=== PATIENT | female | born 1985 | race Caucasian/White ===

== ENCOUNTER → 2018-06-29 16:30 | Outpatient (CLI) | payer OTHER, SELFPAY ==
[2018-07-03 11:07] LABS: HPV Reflexed? NOT INDICATED
== END ==
PROVIDERS: Visit Provider Obstetrics & Gynecology
DX: Z12.4 Encounter for screening for malignant neoplasm of cervix (principal)
CPT/HCPCS: 88175; G0145

== ENCOUNTER → 2019-04-01 16:38 | Outpatient (CLI) | payer OTHER, SELFPAY ==
[2019-04-01 18:35] LABS: Chlamydia Trachomatis by PCR Negative (Negative); Neisserai gonorrhoeae by PCR Negative (Negative); Probe Check PASS; Sample Adequacy Control PASS; Specimen Processing Control PASS
== END ==
PROVIDERS: Referring Provider Obstetrics & Gynecology; Visit Provider Obstetrics & Gynecology
DX: Z11.3 Encounter for screening for infections with a predominantly sexual mode of transmission (principal)
CPT/HCPCS: 87491; 87591

== ENCOUNTER → 2019-05-03 14:04 | Outpatient (CLI) | payer OTHER, SELFPAY ==
[2019-05-03 16:04] LABS: Color, Urine Yellow (Yellow); Glucose, Dipstick Normal (Normal); Ketone-Dipstick 5 mg/dl (Negative); Leukocyte Esterase-Dipstick 500 /ul (Negative); Nitrite-Dipstick Negative (Negative); Occult Blood-Urine 10 /ul (Negative); Protein-Dipstick Negative (Negative); Urine Bilirubin Dipstick Negative (Negative); Urine Clarity Sl. Cloudy (Clear); Urine Urobilinogen Normal (Normal); Urine pH 6.5 (5.0 - 8.0)
[2019-05-03 16:07] LABS: Absolute Lymphocyte Count 2.16 X10^3/uL (0.83-4.51); Absolute Neutrophil Count 7.7 X10^3/uL (2.0-7.7); Basophil# 0.02 X10^3/uL; Basophil% 0.2 % (0-1); Eosinophil# 0.05 X10^3/uL; Eosinophils% 0.5 % (0-5); Hematocrit 39.9 % (37-47); Hemoglobin 13.4 g/dL (12.0-15.0); Lymphocyte # 2.16 X10^3/ul (4.0); Lymphocyte % 20.8 % (19-41); Mean Corp Hgb Conc 33.6 g/dL (32-36); Mean Corpuscular Hgb 29.9 pg (27.0-32.0); Mean Corpuscular Volume 89.1 fL (81-99); Mean Platelet Vol. 10.7 fl (6.2-12.0); Monocyte# 0.42 X10^3/uL; NRBC Flagged by Analyzer 0 % (0-5); Neutrophil % 74.1 % (47-70); Platelet Count 260 K/mm3 (150-450); RBC Distribution Width SD 42.4 fl (35.1-43.9); Red Blood Count 4.48 M/mm3 (4.2-5.4); White Blood Count 10.4 K/mm3 (4.4-11.0)
[2019-05-03 16:25] LABS: Thyroid Stim Hormone (TSH) 0.97 uIU/mL (0.358-3.74)
[2019-05-04 10:00] LABS: HIV - WCH Non-Reactive (Nonreactive); Hepatitis B Surface Antigen Non-Reactive (Nonreactive); Hepatitis C Antibody Non-Reactive (Nonreactive); Rubella IgG 319.9 IU/mL
[2019-05-06 01:45] LABS: Prenatal RPR NONREACTIVE (NONREACTIVE)
== END ==
PROVIDERS: Visit Provider Obstetrics & Gynecology
DX: Z34.82 Encounter for supervision of other normal pregnancy, second trimester (principal); Z3A.00 Weeks of gestation of pregnancy not specified
CPT/HCPCS: 36415; 81002; 84443; 85025; 86703; 86762; 86803; 87340

== ENCOUNTER → 2019-08-02 13:38 | Outpatient (CLI) | payer OTHER, SELFPAY ==
[2016-06-22 04:28] VITALS: BMI 30.2
[2019-08-02 14:21] LABS: Hematocrit 38.1 % (37-47); Hemoglobin 12.5 g/dL (12.0-15.0); Mean Corp Hgb Conc 32.8 g/dL (32-36); Mean Corpuscular Hgb 30.3 pg (27.0-32.0); Mean Corpuscular Volume 92.3 fL (81-99); Mean Platelet Vol. 10.3 fl (6.2-12.0); Platelet Count 240 K/mm3 (150-450); RBC Distribution Width CV 13.2 % (11.6-14.6); RBC Distribution Width SD 44.4 fl (35.1-43.9); Red Blood Count 4.13 M/mm3 (4.2-5.4); White Blood Count 12.7 K/mm3 (4.4-11.0)
[2019-08-02 14:24] LABS: Glucose Challenge Gest 1H 50g 75 mg/dL (70-140)
== END ==
PROVIDERS: Visit Provider Obstetrics & Gynecology
DX: Z34.83 Encounter for supervision of other normal pregnancy, third trimester (principal)
CPT/HCPCS: 36415; 82950; 85027

== ENCOUNTER → 2019-09-20 | Outpatient (CLI) | payer OTHER, SELFPAY | END | disposition home or self-care (01) | LOC: LABSPEC 14:15 | PROVIDERS: Visit Provider Advanced Practice Midwife | DX: R30.0 Dysuria (principal) | CPT/HCPCS: 87086; 87088 ==

== ENCOUNTER → 2019-09-27 | Outpatient (CLI) | payer OTHER, SELFPAY | END | disposition home or self-care (01) | LOC: LABSPEC 14:04 | PROVIDERS: Visit Provider Obstetrics & Gynecology | DX: Z36.85 Encounter for antenatal screening for Streptococcus B (principal) | CPT/HCPCS: 87081 ==

== ENCOUNTER 2019-10-25 11:05 | Outpatient (CLI) | payer OTHER, SELFPAY ==
[2016-06-22 04:28] VITALS: BMI 30.2
[2019-10-25] VITALS (16 sets, daily range): BP systolic 107–160; BP diastolic 57–84; PULSE 52–74; TEMP 99.6; BMI 31.3
[2019-10-25 12:09] LABS: Hematocrit 34.6 % (37-47); Hemoglobin 11.2 g/dL (12.0-15.0); Mean Corp Hgb Conc 32.4 g/dL (32-36); Mean Corpuscular Hgb 28.5 pg (27.0-32.0); Mean Platelet Vol. 12.4 fl (6.2-12.0); Platelet Count 154 K/mm3 (150-450); RBC Distribution Width CV 13.2 % (11.6-14.6); RBC Distribution Width SD 41.6 fl (35.1-43.9); Red Blood Count 3.93 M/mm3 (4.2-5.4); White Blood Count 9.2 K/mm3 (4.4-11.0)
[2019-10-25 12:26] LABS: AST(SGOT) 30 U/L (15-37); Alanine Aminotransfer ALT/SGPT 23 U/L (13-56); Creatinine, Serum 0.76 mg/dL (0.55-1.02); EST Glomerular Filtration Rate 92 mL/min (>60); Est Glom Filt Rate - Afr Amer 111 mL/min (>60); Estimated Creatinine Clearance 97.64 ml/min; Partial Thromboplast Time 27.1 Seconds (24.1-36.2); Prothrombin Time (Protime)PT. 12.5 SECONDS (11.7-14.9); Uric Acid 4.8 mg/dL (2.6-6.0)
[2019-10-25 13:03] LABS: Protein:Creat Ratio 286 mg/g CRE (0-200)
--- NOTE | 2019-10-26 08:47 | OB.TRI.HP_ITS ---
- Problem List (1) 39 weeks gestation of Status: Acute (2) rule out pre-eclampsia Status: Acute History of Present Illness Date of Service: 10/25/19 Was patient seen by the physician?: Yes Reason For Visit: R/O PIH Date of Service: 10/25/19 Final MARK: 10/26/19 Final MARK Source: US <20 weeks Gestational age: 40 Weeks and 0 Days History of Present Illness: +3 bilateral lower extremity pitting edema in the office today. BP 128/90 with 2+ urine protein. Has had a mild headache not relieved with Tylenol, rest and hydration. Allergies No Known Allergies Allergy (Verified 06/22/16 04:27) Laboratory Studies: Laboratory Tests 10/25/19 10/25/19 10/25/19 Range/Units 12:25 11:45 11:45 WBC (4.4-11.0) K/mm3 RBC (4.2-5.4) M/mm3 Hgb (12.0-15.0) g/dL Hct (37-47) % MCV (81-99) fL MCH (27.0-32.0) pg MCHC (32-36) g/dL RDW Std Deviation (35.1-43.9) fl RDW Coeff of Amber (11.6-14.6) % Plt Count (150-450) K/mm3 MPV (6.2-12.0) fl PT 12.5 (11.7-14.9) SECONDS INR 1.0 APTT 27.1 (24.1-36.2) Seconds Creatinine 0.76 (0.55-1.02) mg/dL Estim Creat Clear Calc 97.64 ml/min Est GFR (MDRD) Af Amer 111 (>60) mL/min Est GFR (MDRD) Non-Af 92 (>60) mL/min Uric Acid 4.8 (2.6-6.0) mg/dL AST 30 (15-37) U/L ALT 23 (13-56) U/L U Random Total Protein 10.0 (<11.9) mg/dL Urine Creatinine 35.00 (NO RANGE EST.) mg/dL Protein/Creatinin Ratio 286 H (0-200) mg/g CRE 10/25/19 Range/Units 11:45 WBC 9.2 (4.4-11.0) K/mm3 RBC 3.93 L (4.2-5.4) M/mm3 Hgb 11.2 L (12.0-15.0) g/dL Hct 34.6 L (37-47) % MCV 88.0 (81-99) fL MCH 28.5 (27.0-32.0) pg MCHC 32.4 (32-36) g/dL RDW Std Deviation 41.6 (35.1-43.9) fl RDW Coeff of Amber 13.2 (11.6-14.6) % Plt Count 154 (150-450) K/mm3 MPV 12.4 H (6.2-12.0) fl PT (11.7-14.9) SECONDS INR APTT (24.1-36.2) Seconds Creatinine (0.55-1.02) mg/dL Estim Creat Clear Calc ml/min Est GFR (MDRD) Af Amer (>60) mL/min Est GFR (MDRD) Non-Af (>60) mL/min Uric Acid (2.6-6.0) mg/dL AST (15-37) U/L ALT (13-56) U/L U Random Total Protein (<11.9) mg/dL Urine Creatinine (NO RANGE EST.) mg/dL Protein/Creatinin Ratio (0-200) mg/g CRE Review of Systems Constitutional: Denies: Chills, Fever, Weight Change HEENT: Reports: Head Aches. Denies: Sinus Congestion, Sinus Drainage Cardiovascular: Denies: Chest Pain, Palpitations Respiratory: Denies: Cough, Shortness of breath at rest, Sputum production Gastrointestinal: Denies: Abdominal Pain, Nausea, Vomiting Genitourinary: Denies: Dysuria Musculoskeletal: Denies: Joint Pain, Joint Tenderness Skin: Denies: Rash, Wounds Neurological: Denies: Numbness, Tingling, Focal weakness Psychiatric: Denies: Anxiety, Depression, Homicidal Ideations, Suicidal Ideations Hematologic/ Lymphatic: Denies: Easy Bruising, Easy Bleeding Physical Exam General: Alert, Oriented x3, No apparent distress HEENT: Atraumatic, Normocephalic. 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 Negative for: Vulvar lesions Estimated gestational size: Appropriate for gestational size Presentation: Cephalic Cervix Dilation (cm): 1 Station: -3 Effacement (%): 50 NST - FHR Rate Baby A Baseline: 130 Variability:: Moderate Accelerations:: 15 x 15 Decelerations:: None NST Reactive:: Yes, Appropriate for gestational age FHR Category:: Category I Uterine Activity:: irritability Impression/Plan A: Sent to triage from office to rule out pre-eclampsia at 39 weeks gestation NST reactive, FHR baseline 130, +accels, -decels, moderate variability, Category I P: Pre-eclampsia labs ran Serial BPs NST All reviewed with Dr. Hinton. Okay to discharge and follow up in 2 days in the office. To call with any worsening s/s of pre-eclampsia
== END 2019-10-25 13:20 | disposition home or self-care (01) ==
LOC: WPOUT 11:12 → OBT 11:13
PROVIDERS: PCP Family Medicine; Referring Provider Obstetrics & Gynecology; Visit Provider Obstetrics & Gynecology
DX: O16.3 Unspecified maternal hypertension, third trimester (principal); Z3A.39 39 weeks gestation of pregnancy
CPT/HCPCS: 36415; 59025; 59050; 82565; 82570; 84156; 84450; 84460; 84550; 85027; 85610; 85730; 99218; G0378

== ENCOUNTER 2019-10-26 14:25 | Inpatient (IN) | payer OTHER, SELFPAY ==
[2016-06-22 04:28] VITALS: BMI 30.2
[2019-10-25 11:21] VITALS: BMI 31.3
[2019-10-26] VITALS (18 sets, daily range): BP systolic 123–155; BP diastolic 63–88; PULSE 55–112; TEMP 98.5; O2SAT 97; BMI 32.0
[2019-10-26] MEDS: Lactated Ringers 1,000 ML 50 ML IV (14:50)
[2019-10-26 15:16] LABS: Absolute Lymphocyte Count 1.71 X10^3/uL (0.83-4.51); Absolute Neutrophil Count 7.9 X10^3/uL (2.0-7.7); Basophil# 0.04 X10^3/uL; Basophil% 0.4 % (0-1); Eosinophil# 0.02 X10^3/uL; Eosinophils% 0.2 % (0-5); Hematocrit 34.6 % (37-47); Hemoglobin 11.4 g/dL (12.0-15.0); Lymphocyte # 1.71 X10^3/ul (4.0); Mean Corp Hgb Conc 32.9 g/dL (32-36); Mean Corpuscular Hgb 29.2 pg (27.0-32.0); Mean Corpuscular Volume 88.7 fL (81-99); Mean Platelet Vol. 12.1 fl (6.2-12.0); Monocyte# 0.36 X10^3/uL; Monocyte% 3.6 % (0-10); NRBC Flagged by Analyzer 0 % (0-5); Neutrophil # 7.87 X10^3/uL (2.7-7.7); Neutrophil % 78.1 % (47-70); Platelet Count 161 K/mm3 (150-450); RBC Distribution Width CV 13.2 % (11.6-14.6); RBC Distribution Width SD 42.5 fl (35.1-43.9); White Blood Count 10.1 K/mm3 (4.4-11.0)
[2019-10-26] MEDS: 0.9% Saline Lock 10 ML Syringe IV (15:49)
--- NOTE | 2019-10-26 17:35 | PCM.HP.OB ---
- Problem List (1) 40 weeks gestation of Status: Acute History Date of Admission: 10/26/19 Final MARK: 10/26/19 Final MARK Source: US <20 weeks Gestational age: 40 Weeks and 0 Days History of this : This is a 34 year-old, G [5], P [3], at 40 weeks gestational age. Sent for medical induction r/t gestational hypertension. Allergies No Known Allergies Allergy (Verified 10/26/19 14:53) Home Medications: Home Medications Vits [Prenatabs FA ] 1 tablet PO DAILY 10/31/13 Smoking Status: Never smoker Alcohol: None Number of Fetus(es): 1 NST - FHR Rate Baby A Baseline: 140 Variability:: Moderate Accelerations:: 15 x 15 Decelerations:: None NST Reactive:: Yes FHR Category:: Category I Uterine Activity:: 2-6 minutes by palpation History Past Pregnancies: PRIOR DELIVERY HISTORY DEL DATE GEST LAB WT LB WT OZ TYPE ANES LABOR TX 27 December 12 38 13 5 5 Vag None No 11 Mar 14 38 6 7 4 Vag None No 12 Vidal 15 8 0 0 0 Sab None No 30 Oct 16 40 10 7 15 Vag None No Labs: Mom's Labs & Results 10/26/19 10/26/19 14:50 14:50 WBC 10.1 RBC 3.90 L Hgb 11.4 L Hct 34.6 L MCV 88.7 MCH 29.2 MCHC 32.9 RDW Std Deviation 42.5 RDW Coeff of Amber 13.2 Plt Count 161 MPV 12.1 H Immature Gran % (Auto) 0.700 Neut % (Auto) 78.1 H Lymph % (Auto) 17.0 L Mcdowell % (Auto) 3.6 Eos % (Auto) 0.2 Baso % (Auto) 0.4 Absolute Neuts (auto) 7.9 H Absolute Lymphs (auto) 1.71 Nucleated RBC % 0 Blood Type O POSITIVE Antibody Screen NEGATIVE Course Did the patient receive Yes care? Labs Blood Type: O RH: POSITIVE RPR/VDRL/Syphilis Nonreactive Rubella status Immune HbSAg Negative Date Done: 05/03/19 Chlamydia Negative Gonorrhea Negative HIV/AIDS Non-Reactive Group B Strep: Negative Current Obstetrical History Gestational Diabetes No Incompetent Cervix No Infertility No IUGR No Macrosomia No Hypertension/Pre-eclampsia Yes: justt 1x yesterday Placenta Previa/Abruption No PTL/PROM No Uterine anomaly No Oligohydramnios No Polyhydramnios No Multiple gestation No Past Medical History Asthma No Diabetes No Hypertension No Heart disease No Mitral valve prolapse No Neurologic/Seizure disorder/ No Migraines Kidney disease No Liver disease No Varicosities No Clotting disorders/Hx of DVT No Thyroid Dysfunction No Other medical diseases No Psychiatric disorders No Major trauma No Abnormal PAP smear No Sleep apnea No Mammogram in the last 2 years No Medications Taken During Last Date/Time of Medication 03/24/2019 Taken: [Valtrex] Reason for taking medication [ Pt. took for Shingles outbreak Valtrex] Social History Marital Status: Alleged father Julio C Kowalski Hx Smoking No Smoking Status Never smoker Expected Infant Delivery Method: Spontaneous Vaginal Number of Visits: 13 Review of Systems Constitutional: Denies: Chills, Fever, Weight Change HEENT: Denies: Head Aches, Sinus Congestion, Sinus Drainage Cardiovascular: Denies: Chest Pain, Palpitations Respiratory: Denies: Cough, Shortness of breath at rest, Sputum production Gastrointestinal: Denies: Abdominal Pain, Nausea, Vomiting Genitourinary: Denies: Dysuria Musculoskeletal: Denies: Joint Pain, Joint Tenderness Skin: Denies: Rash, Wounds Neurological: Denies: Numbness, Tingling, Focal weakness Psychiatric: Denies: Anxiety, Depression, Homicidal Ideations, Suicidal Ideations Hematologic/ Lymphatic: Denies: Easy Bruising, Easy Bleeding Physical Exam Vitals: BP 147/88, R 16, T 99.6 General: Alert, Oriented x3, No apparent distress HEENT: Atraumatic, Normocephalic. 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 Negative for: Vulvar lesions Estimated gestational size: Appropriate for gestational size Presentation: Cephalic Cervix Dilation (cm): 3 Station: -3 Effacement (%): 50 Assessment/Plan All Active Problems 39 weeks gestation of (Acute) rule out pre-eclampsia (Acute) 40 weeks gestation of (Acute) A: This is a 34 year-old, G [5], P [3], at 40 weeks gestational age. Gestational hypertension with BP 147/88 SVE external OS 5, internal OS 3/50/-3 AROM 1722 with clear amniotic fluid FHR baseline 140, +accels, -decels, moderate variability, reactive, Category I P: Continue to ambulate and encourage position changes Will recheck SVE 0 If SVE unchanged at 2130, will start slow Pitocin Continue with IOL with patient's wishes for as natural as possible
[2019-10-26] MEDS: Oxytocin 30 units/NS 500 ml 30 UNITS/500 ML IV.SOLN 334 UNITS IV (21:18)
--- NOTE | 2019-10-26 21:45 | PCM.OPRPT ---
Problem List (1) 40 weeks gestation of Status: Acute Vaginal Delivery Maternal Presentation: Medically Indicated Induction Method of Induction: Amniotomy Medical Reason for Induction: Gestational Hypertension Amniotic Membrane Rupture Type: Artificial Rupture of Membrane time: 1721 Amniotic Fluid Description: Clear Final MARK: 10/26/19 Gestational age: 40 Weeks and 0 Days Date of Procedure: 10/26/19 Pre-Operative Diagnosis: IOL at 40 weeks Post-Operative Diagnosis: S/P Surgery/ Procedure Performed: Spontaneous Vaginal Delivery Type of Anesthesia: None Description of Procedure: Patient was FD/+ 3 station. She pushed to deliver a female infant in OA to ANGELA. Loose body cord x1 removed with at the perineum. The infant was placed on the maternal abdomen and further attended by nursery personnel. The cord was doubly clamped and cut by FOB at approximately 1.5 minutes of life. Cord blood was obtained. With gentle traction and maternal efforts the placenta delivered spontaneously and appeared intact on inspection with a 3 vessel cord. Fundal massage with firm fundus, midline, and one under umbilicus. First degree right labial laceration with no repair needed, good hemostasis. Multiple skid galarza along perineum and bilateral lower labias, all with excellent hemostasis. EBL 50. Apgars 8/9. Sponge and needle counts correct x 2. Presentation: Vertex, ANGELA Placental Delivery Description: Spontaneous Placenta Disposition: [facility] Cord Vessel Description: 3 Vessels Cord Entanglement: - - loose around body x 1 Estimated Blood Loss: 50 Infant A gender: Female (1 minute): 8 (5 minute): 9 Episiotomy Description: None Laceration: 1st degree - right labial, multiple skid galarza near perineum bilateral sides Medications given after delivery: IV Pitocin Complications: None
[2019-10-26] MEDS: Ibuprofen 600 MG Tablet PO (22:03)
[2019-10-27] VITALS (13 sets, daily range): BP systolic 126–165; BP diastolic 63–80; PULSE 49–59; RESP 16–18; TEMP 36.2–36.7
[2019-10-27] MEDS: Acetaminophen 500 MG Tablet 1000 MG PO ×2 (05:17→22:21)
--- NOTE | 2019-10-27 09:07 | DCINST_ITS ---
Discharge Diet: No Restrictions Discharge Activity: Return to Normal Activity, May not drive while taking narcotic pain medications., May Shower May resume sexual activity in: 4-6 weeks Additional Activity Instructions:: Nothing in the vagina for 4-6 weeks. You may return to work/school in 6 weeks. Call your doctor if your incision/area has: Continuous Slow Oozing, Sudden Increased Bleeding, Increased Pain/ Swelling, Increased Redness, Foul Smelling Discharge Additional Instructions: If you experience any of the following, contact your healthcare provider. * Bleeding that soaks a pad every hour for 2 hours * Fever 100.4 or higher * Unrelieved incision or abdominal pain * Swelling, redness, discharge or bleeding from your incision or episiotomy site * Your incision begins to separate * Problems urinating (including inability to urinate or burning while urinating). * Visual changes * Severe headache * Flu-like symptoms * Pain or redness in one of both of your breasts * Pain, warmth, tenderness or swelling in your legs, especially the calf area * Frequent nausea and vomiting * Symptoms of depression or anxiety If you experience any of the following, call 911 or go to the nearest Emergency Room. * Chest pain * Problems breathing * Seizure activity * Partial or complete paralysis of a body part, slurred speech, weakness or drooping of the face, or a sudden inability to walk or hold your balance Allergies/Adverse Reactions: Allergies No Known Allergies Allergy (Verified 10/26/19 14:53) Medications to take at Discharge Vits [Prenatabs FA ] 1 tablet PO DAILY 10/31/13 When: Call to make an appointment with your doctor in 6 weeks. If you had elevated Blood Pressure or 4th degree laceration you will need to be seen in 2 weeks. Primary Care Physician: Osiris Jimenez PA-C [Primary Care Provider] - Test Results: Test results from this visit will be discussed in further detail at your follow- up appointment, if applicable.
--- NOTE | 2019-10-27 09:07 | PCM.PN.BLA ---
Progress Note S: Feeling well with little pain. First two times up to the bathroom, vaginal burning, but now it is a lot better. O: AVSS Fundus at umbilicus, firm, midline Lochia rubra moderate, denies clots A: Post vaginal delivery day #1 female Normal course P: Continue normal course Continue Dermaplast PRN STROKE Vital Signs/Narrative: Vital Signs Temp Pulse Resp BP 10/27/19 05:25 97.1 F L 53 L 16 135/77 H
[2019-10-27] MEDS: Ibuprofen 600 MG Tablet PO (12:48)
[2019-10-28 02:53] VITALS: BP 133/65; PULSE 50; RESP 16; TEMP 36.4
[2019-10-28 02:54] VITALS: BP 133/65; PULSE 46
[2019-10-28 08:15] VITALS: BP 128/79; PULSE 51
[2019-10-28 08:18] VITALS: BP 128/79; PULSE 51; RESP 18; TEMP 36.5
--- NOTE | 2019-10-28 08:32 | PCM.PN.OB ---
Patient Problems: Active and Suspected Problems 40 weeks gestation of (Acute) Subjective: Patient without complaints. Breast-feeding going well. Ready to go home today. - Physical Exam Vitals/I&O's: Vital Signs Temp Pulse Resp BP 97.7 F L 51 L 18 128/79 H 10/28/19 08:18 10/28/19 08:18 10/28/19 08:18 10/28/19 08:18 Oxygen Delivery Method Room Air Weight: 198 lb 3.2 oz Body Mass Index (BMI) 32.0 Intake and Output for Last 24 Hours 10/26/19 10/27/19 10/28/19 23:59 23:59 23:59 Intake Total 562.00 / 562.00 Output Total 700 / 700 Balance 562.00 / 462.00 -700 / -700 Current Medications Acetaminophen (Tylenol) 1,000 mg PO Q8H PRN PRN PRN Reason: Pain Score 1-3/10 Last Admin: 10/27/19 22:21 Dose: 1,000 mg Documented by: Bisacodyl (Dulcolax) 10 mg RECTAL UD PRN PRN Reason: If no BM Dibucaine (Dibucaine) 1 applic TOPICAL TID PRN PRN; Protocol PRN Reason: Discomfort Hydrocortisone (Hytone) 1 applic TOPICAL TID PRN PRN; Protocol PRN Reason: Discomfort Ibuprofen (Motrin) 600 mg PO Q6H PRN PRN PRN Reason: Pain Score 1-3/10 Last Admin: 10/27/19 12:48 Dose: 600 mg Documented by: Methylergonovine Maleate (Methergine) 0.2 mg IM X1 PRN PRN Reason: Excess bleeding/uterine atony Ondansetron HCl (Zofran) 4 mg IV Q4H PRN PRN PRN Reason: Nausea Oxycodone HCl (Oxyir) 5 - 10 mg PO Q4H PRN PRN PRN Reason: Pain Score 4-10/10 Senna/Docusate Sodium (Senokot-S, Mishel-Colace) 1 - 2 tablet PO DAILY PRN PRN PRN Reason: Constipation Simethicone (Mylicon) 80 mg PO PCHS PRN PRN Reason: Indigestion/Stomach pain Sodium Chloride () 5 - 15 ml IV UD PRN PRN Reason: SALINE FLUSH Throat Lozenges (Dermoplast (Sp)) 1 applic TOPICAL 4X/DAY PRN PRN; Protocol PRN Reason: Pain/Inflammation Zolpidem Tartrate (Ambien (Generic)) 5 mg PO QHS PRN PRN PRN Reason: Insomnia Medical Necessity - Tobacco Use Smoking Status: Never smoker Assessment/Plan All Active Problems 39 weeks gestation of (Acute) rule out pre-eclampsia (Acute) 40 weeks gestation of (Acute) Doing well day #2 status post routine spontaneous vaginal delivery. Will release to home with routine instructions.
== END 2019-10-28 09:49 | disposition home or self-care (01) | DRG 807 ==
PROVIDERS: Admitting Provider Obstetrics & Gynecology; PCP Family Medicine; Visit Provider Obstetrics & Gynecology
DX: O13.4 Gestational [pregnancy-induced] hypertension without significant proteinuria, complicating childbirth (principal); O69.82X0 Labor and delivery complicated by other cord entanglement, without compression, not applicable or unspecified; O70.0 First degree perineal laceration during delivery; Z37.0 Single live birth; Z3A.40 40 weeks gestation of pregnancy
CPT/HCPCS: 59025; 59050; 85025; 86850; 86900; 86901; 99218; J7120; A4216; G0378

== ENCOUNTER → 2021-06-24 | Outpatient (CLI) | payer OTHER, SELFPAY ==
[2021-06-27 15:29] LABS: HPV APTIMA, High Risk Negative (Negative)
== END | disposition home or self-care (01) ==
PROVIDERS: PCP Family Medicine; Visit Provider Obstetrics & Gynecology
DX: Z12.4 Encounter for screening for malignant neoplasm of cervix (principal)
CPT/HCPCS: 87624; 88175; G0145

== ENCOUNTER → 2023-01-29 | Outpatient (CLI) | payer OTHER, SELFPAY ==
--- NOTE | 2023-01-29 14:30 | US_ITS ---
STUDY: ULTRASOUND BREAST - RIGHT REASON FOR EXAM: Female, 38 years old. Palpable lump in the lateral aspect of the right breast. TECHNIQUE: Axial and longitudinal images of the RIGHT breast were performed with a high resolution ultrasound transducer. # OF IMAGES: 24 COMPARISON: Comparison is made with prior mammogram done earlier in the day. FINDINGS: RIGHT Breast: The lateral aspect of the right breast was examined with ultrasound. No sonographic and amount is seen. IMPRESSION: No sonographic abnormality is seen. ASSESSMENT CATEGORY: BIRADS Category 1: Negative. A letter regarding these results will be sent to the patient by the facility within 30 days. Electronically Signed: Blas Nassar MD at 15:39 EDT , STUDY: ULTRASOUND BREAST - LEFT REASON FOR EXAM: Female, 38 years old. Palpable lump in the central upper aspect of the left breast. TECHNIQUE: Axial and longitudinal images of the LEFT breast were performed with a high resolution ultrasound transducer. # OF IMAGES: 24 COMPARISON: Comparison is made with prior mammograms done earlier today. FINDINGS: LEFT Breast: Targeted ultrasound was performed. No ultrasonographic abnormalities seen. US/Breast Limited Unilateral IMPRESSION: No sonographic abnormality is seen. ASSESSMENT CATEGORY: BIRADS Category 1: Negative. A letter regarding these results will be sent to the patient by the facility within 30 days. Electronically Signed: Blas Nassar MD at 15:42 EDT ,
--- NOTE | 2023-01-29 14:30 | BI_ITS ---
MAMMOGRAPHY - BILATERAL DIAGNOSTIC REASON FOR EXAM: Female, 38 years old. Bilateral breast lumps and tenderness. PERTINENT HISTORY: TECHNIQUE: Digital bilateral breast nellie (3D mammographic acquisition) in the CC and MLO projections. 2-D mediolateral oblique (MLO) and craniocaudad (CC) views of both breasts were obtained. CAD: Full Field Digital Mammography with Computer Added Detection was performed. COMPARISON: None. Baseline examination. FINDINGS: Breast Composition: The breasts are heterogeneously dense, which may obscure small masses. There are no dominant masses or suspicious calcifications. No other significant abnormalities are identified. BI/DIAG MAMM W/CAD, BILAT IMPRESSION: Negative diagnostic mammogram. With the patient''s history of bilateral palpable breast lumps, targeted correlation with ultrasound is recommended. ASSESSMENT CATEGORY: BIRADS Category 0: Incomplete. Need additional imaging evaluation. A letter regarding these results will be sent to the patient by the facility within 30 days. Approximately 10% of breast cancers are not detected by mammography. A normal mammogram should not delay biopsy of a clinically suspicious abnormality. Electronically Signed: Blas Nassar MD at 15:04 EDT ,
== END | disposition home or self-care (01) ==
LOC: OPBI 14:26
PROVIDERS: PCP Family Medicine; Referring Provider Midwife; Visit Provider Midwife
DX: N63.10 Unspecified lump in the right breast, unspecified quadrant (principal); N63.20 Unspecified lump in the left breast, unspecified quadrant
CPT/HCPCS: 76642; 77062; 77066; G0279

== ENCOUNTER → 2024-08-02 | Outpatient (CLI) | payer OTHER, SELFPAY ==
--- NOTE | 2024-08-02 14:17 | BI_ITS ---
MAMMOGRAPHY - BILATERAL DIAGNOSTIC REASON FOR EXAM: Female, 39 years old. Lateral right breast pain. PERTINENT HISTORY: Non-contributory. TECHNIQUE: Digital bilateral breast nellie (3D mammographic acquisition) in the CC and MLO projections. 2-D mediolateral oblique (MLO) and craniocaudad (CC) views of both breasts were obtained. CAD: Full Field Digital Mammography with Computer Added Detection was performed. COMPARISON: Comparison is made with prior study dated January 29, 2023. FINDINGS: Breast Composition: The breasts are heterogeneously dense, which may obscure small masses. There are no dominant masses or suspicious calcifications. Stable small bilateral axillary lymph nodes. No other significant abnormalities are identified. There has been no significant change since the prior study. BI/DIAG MAMM W/CAD, BILAT IMPRESSION: Stable bilateral diagnostic mammogram. With the patient''s history of the right lateral breast pain, correlation with ultrasound is recommended. ASSESSMENT CATEGORY: BIRADS Category 0: Incomplete. Need additional imaging evaluation. A letter regarding these results will be sent to the patient by the facility within 30 days. Approximately 10% of breast cancers are not detected by mammography. A normal mammogram should not delay biopsy of a clinically suspicious abnormality. Electronically Signed: Blas Nassar MD at 15:14 EST ,
--- NOTE | 2024-08-02 14:17 | US_ITS ---
STUDY: ULTRASOUND BREAST - RIGHT REASON FOR EXAM: Female, 39 years old. Left lateral breast pain. TECHNIQUE: Axial and longitudinal images of the RIGHT breast were performed with a high resolution ultrasound transducer. # OF IMAGES: 23 COMPARISON: Comparison is made with prior mammogram dated August 02, 2024 and prior sonogram of the right breast dated January 29, 2023. FINDINGS: RIGHT Breast: The lateral aspect of the right breast was examined with ultrasound. There is a 1 cm x 1.7 cm x 0.9 cm cyst at the 9:00 position of the breast at 1 cm from the nipple. US/Breast Limited Unilateral IMPRESSION: There is a 1 cm x 1.7 cm x 0.9 cm cyst at the 9:00 position of the breast at 1 cm from the nipple. ASSESSMENT CATEGORY: BIRADS Category 2: Benign. A letter regarding these results will be sent to the patient by the facility within 30 days. Electronically Signed: Blas Nassar MD at 10:16 EST ,
== END | disposition home or self-care (01) ==
PROVIDERS: PCP Family Medicine; Referring Provider Midwife; Visit Provider Midwife
DX: N64.4 Mastodynia (principal)
CPT/HCPCS: 76642; 77062; 77066; G0279